=== PATIENT | male | born 1990 | race Caucasian/White ===

== ENCOUNTER 2018-05-04 07:35 | Emergency (ER) | payer OTHER ==
[2018-05-04 07:38] VITALS: BP 151/90; PULSE 77; RESP 18; TEMP 98.2
--- NOTE | 2018-05-04 07:49 | ED ---
General Adult HPI - General Chief complaint: Shortness of Breath Stated complaint: SOB Time Seen by Provider: 05/04/18 07:39 Source: patient, RN notes reviewed Mode of arrival: ambulatory Limitations: no limitations - History of Present Illness Initial comments: Patient is a pleasant 28-year-old male presenting to the emergency Department with complaints of shortness of breath. Patient has had a mild cough for the past couple of days. Patient felt somewhat short of breath this morning. The most part this last around 45 minutes. Symptoms are near resolved at this point however remain a small amount. Onset was around 5 AM when he woke. No pain. No palpitations. No fevers. No leg pain or leg swelling. No history of similar symptoms previously. Patient denies having sore throat or sinus congestion. - Related Data Previous Rx's Medication Instructions Recorded Ciprofloxacin HCl [Cipro] 500 mg PO Q12HR #20 tablet 01/07/16 Diphenox-Atrop 2.5-0.025 mg 1 tab PO QID PRN #12 tablet 01/07/16 [Lomotil] Allergies Allergy/AdvReac Type Severity Reaction Status Date / Time codeine Allergy Vomiting Verified 05/04/18 07:38 loracarbef [From Lorabid] Allergy Unknown Verified 05/04/18 07:38 Penicillins Allergy Unknown Verified 05/04/18 07:38 Review of Systems ROS Statement: Those systems with pertinent positive or pertinent negative responses have been documented in the HPI. ROS Other: All systems not noted in ROS Statement are negative. Constitutional: Denies: fever Eyes: Denies: eye pain ENT: Denies: ear pain Respiratory: Reports: cough, dyspnea Cardiovascular: Denies: chest pain Endocrine: Denies: fatigue Gastrointestinal: Denies: abdominal pain Genitourinary: Denies: dysuria Musculoskeletal: Denies: back pain Skin: Denies: rash Neurological: Denies: weakness Past Medical History Past Medical History: No Reported History History of Any Multi-Drug Resistant Organisms: None Reported Past Surgical History: No Surgical Hx Reported Past Psychological History: No Psychological Hx Reported Smoking Status: Current some day smoker Past Alcohol Use History: Occasional Past Drug Use History: Marijuana General Exam Limitations: no limitations General appearance: alert, in no apparent distress Head exam: Present: atraumatic Eye exam: Present: normal appearance ENT exam: Present: normal oropharynx Neck exam: Present: normal inspection. Absent: tenderness Respiratory exam: Present: normal lung sounds bilaterally. Absent: respiratory distress, wheezes, rales, rhonchi, stridor, accessory muscle use, decreased juan r th sounds, prolonged expiratory Cardiovascular Exam: Present: regular rate, normal rhythm GI/Abdominal exam: Present: soft. Absent: tenderness Extremities exam: Present: normal inspection. Absent: pedal edema, calf tenderness Neurological exam: Present: alert Psychiatric exam: Present: normal affect, normal mood Skin exam: Present: normal color Course Vital Signs 05/04/18 07:36 Temperature 98.2 F Pulse Rate 77 Respiratory 18 Rate Blood Pressure 151/90 O2 Sat by Pulse 100 Oximetry EKG Findings - EKG Comments: EKG Findings:: EKG shows sinus bradycardia 53. MA 144. QRS 96. QT 398. QTc 373. Right axis. Normal QRS. Nonspecific ST-T. Medical Decision Making - Medical Decision Making Patient reevaluated and resting comfortably in bed. Patient updated on results and need for follow-up. Patient does request no work today. - Lab Data Lab Results 05/04/18 Range/Units 07:55 D-Dimer <0.17 (<0.60) mg/L FEU - Radiology Data Radiology results: image reviewed (Chest x-ray shows no acute process) Disposition Clinical Impression: Cough Disposition: HOME SELF-CARE Condition: Stable Instructions (If sedation given, give patient instructions): Acute Bronchitis (ED), Dyspnea (ED) Additional Instructions: Please follow-up with your primary care physician in the next day or 2 for recheck. Return for difficulty breathing, fevers, pain, worsening or change in symptoms or other concerns. Is patient prescribed a controlled substance at d/c from ED?: No Referrals: Angelito Becerril DO [Primary Care Provider] - 1-2 days Time of Disposition: 08:53
--- NOTE | 2018-05-04 08:38 | XR ---
EXAMINATION TYPE: XR chest 2V DATE OF EXAM: 05/04/2018 COMPARISON: 02/24/2012 HISTORY: Shortness of breath TECHNIQUE: Frontal and lateral views of the chest are obtained. FINDINGS: There is no focal air space opacity, pleural effusion, or pneumothorax seen. The cardiac silhouette size is within normal limits. The osseous structures are intact. IMPRESSION: No acute cardiopulmonary process.
== END 2018-05-04 09:40 | disposition home or self-care (01) ==
LOC: EC 07:35
DX: R05 Cough (principal); R06.02 Shortness of breath; F17.200 Nicotine dependence, unspecified, uncomplicated; Z88.0 Allergy status to penicillin; Z88.5 Allergy status to narcotic agent; Z88.1 Allergy status to other antibiotic agents
CPT/HCPCS: 36415; 71046; 85379; 93005; 99285

== ENCOUNTER 2020-03-31 05:53 | Emergency (ER) | payer BC, OTHER ==
[2020-03-31 06:02] VITALS: RESP 15; TEMP 98.4
--- NOTE | 2020-03-31 06:17 | ED ---
Headache HPI - General Chief Complaint: Headache Stated Complaint: Head injury Time Seen by Provider: 03/31/20 06:11 Mode of arrival: ambulatory Limitations: no limitations - History of Present Illness Initial Comments: 30-year-old male presenting today for chief complaint evaluation of head injury. Patient states he was struck by a metal box fan that was quite heavy that fell from 3 feet onto the top of his head he states the proximal happened 12 days ago. Patient states he has had dizziness and headache since. He states he did not have these symptoms prior to the injury. He stated they began a few hours after. He denies any ear fullness hearing loss or ringing in the ears. He denies any upper respiratory symptoms. He denies feeling off balance he denies sensation deficits weakness vision changes or loss speech changes he denies any nausea or vomiting. Patient was unsure if he had a concussion. He denies any lacerations or abrasions. He denies a bruising beneath the eyes or behind the ears. He denies any significant neck pain. Patient denies any other areas of injury. Patient appears nontoxic on arrival in no distress. - Related Data Home Medications Medication Instructions Recorded Confirmed No Known Home Medications 05/04/18 05/04/18 Allergies Allergy/AdvReac Type Severity Reaction Status Date / Time codeine Allergy Vomiting Verified 03/31/20 05:57 loracarbef [From Lorabid] Allergy Unknown Verified 03/31/20 05:57 Penicillins Allergy Unknown Verified 03/31/20 05:57 Review of Systems ROS Statement: Those systems with pertinent positive or pertinent negative responses have been documented in the HPI. ROS Other: All systems not noted in ROS Statement are negative. Past Medical History Past Medical History: No Reported History History of Any Multi-Drug Resistant Organisms: None Reported Past Surgical History: Orthopedic Surgery Additional Past Surgical History / Comment(s): foot Past Psychological History: No Psychological Hx Reported Smoking Status: Never smoker Past Alcohol Use History: Occasional Past Drug Use History: Marijuana General Exam - General Exam Comments Initial Comments: General: The patient is awake and alert, in no distress Eye: +3 mm pupils are equal, round and reactive to light, extra-ocular movements are intact. No nystagmus. There is normal conjunctiva bilaterally. No signs of icterus. Ears, nose, mouth and throat: There are moist mucous membranes and no oral lesions. Neck: The neck is supple, there is no tenderness or JVD. Cardiovascular: There is a regular rate and rhythm. No murmur, rub or gallop is appreciated. Respiratory: Lungs are clear to auscultation, respirations are non-labored, breath sounds are equal. No wheezes, stridor, rales, or rhonchi. Gastrointestinal: Soft, non-distended, non-tender abdomen without masses or organomegaly noted. There is no rebound or guarding present. Musculoskeletal: Normal ROM, no tenderness. Strength 5/5. Sensation intact. Pulses equal bilaterally 2+. Neurological: A&O x 3. CN II-XII intact, memory intact to immediately, intermediate and middle school technology teacher recall. Able to follow simple verbal. Able to name a common object (pen). High quality, labial (pa) and lingual (la) speech. Low quality posterior pharynx/larynx (ga) voice sounds. Able to express general knowledge (days in a week). No hemineglect or inattention noted. Finger agnosia (-) and spatially oriented (identified L index finger touched R shoulder with L index finger). Cranial Nerves- Light touch sensation present over the face, chest, abdomen, back, UE bilaterally, and LE bilaterally. Able to localize point during point localization b/l and extinction. No visible bulk atrophy, hypertrophy, fasciculations, or myoclonus of the UE or LE b/l. Full PROM in UE and LE b/l. Bilateral muscle strength 5/5 for the following muscles: deltoid, biceps, triceps, brachioradialis, wrist extensors/flexor, hip flexor, hip abductors/adductors, hamstrings, quadriceps, feet dorsiflexors/plantar flexors. Finger to nose, finger to the examiners finger, and heel to crandall coordinated and accurate b/l. Coordinated and even demonstration of hand flip, finger to thumb, and toe tap b/l. Gait is coordinated and even in stride. (-) Romberg. (-) pronator drift. No nuchal rigidity. (-) Brudzinskis and Kernig signs. Skin: Skin is warm and dry and no rashes or lesions are noted. Psychiatric: Cooperative, appropriate mood & affect, normal judgment. Limitations: no limitations Course Vital Signs 03/31/20 03/31/20 05:58 07:41 Temperature 98.4 F 98.4 F Pulse Rate 71 55 L Respiratory 15 15 Rate Blood Pressure 128/78 129/85 O2 Sat by Pulse 97 98 Oximetry Medical Decision Making - Medical Decision Making No focal deficits. No scalp findings. no raccoon or dumont sign. no nystagmus, no ataxia. patient CT (-). patient at this time I feel has a concussion, i discussed concussion safety/protocols and recommend pcp f/u. patient case discussed with Dr. Burroughs who is agreeable to care. Disposition Clinical Impression: Head injury, Headache, Dizziness Disposition: HOME SELF-CARE Condition: Good Instructions (If sedation given, give patient instructions): Concussion (ED) Additional Instructions: Please use medication as discussed. Please follow-up with family doctor in the next 2 days. I do not recommend sports/activities with increased risk of head injury until symptoms free/cleared by PCP . Please return to emergency room if the symptoms increase or worsen or for any other concerns. Is patient prescribed a controlled substance at d/c from ED?: No Referrals: Angelito Becerril DO [Primary Care Provider] - 1-2 days Time of Disposition: 06:59
--- NOTE | 2020-03-31 07:24 | CT ---
EXAM: CT Head Without Intravenous Contrast CLINICAL HISTORY: ITS.REASON CT Reason: head injury TECHNIQUE: Axial computed tomography images of the head/brain without intravenous contrast. CTDI is 49.27 mGy and DLP is 1011.40 mGy-cm. This CT exam was performed using one or more of the following dose reduction techniques: automated exposure control, adjustment of the mA and/or kV according to patient size, and/or use of iterative reconstruction technique. COMPARISON: CT 06/28/13. FINDINGS: Brain: No hemorrhage. No acute cortical infarct. No midline shift. Ventricles: Stable. Bones/joints: No acute fracture. Soft tissues: Unremarkable. Sinuses: Unremarkable as visualized. Mastoid air cells: Unremarkable as visualized. IMPRESSION: No intracranial hemorrhage or skull fracture.
[2020-03-31 07:42] VITALS: BP 129/85; PULSE 55
== END 2020-03-31 07:42 | disposition home or self-care (01) ==
LOC: EC 05:53
DX: S09.90XA Unspecified injury of head, initial encounter (principal); R42 Dizziness and giddiness; Z88.5 Allergy status to narcotic agent; Z88.0 Allergy status to penicillin; Z88.1 Allergy status to other antibiotic agents; W20.8XXA Other cause of strike by thrown, projected or falling object, initial encounter
CPT/HCPCS: 70450; 99283

== ENCOUNTER 2023-07-21 11:23 | Emergency (ER) | payer BC ==
--- NOTE | 2023-07-21 11:44 | ED ---
Chest Pain HPI - General Chief Complaint: Chest Pain Stated Complaint: Chest pains Time Seen by Provider: 07/21/23 11:41 Source: patient, RN notes reviewed Mode of arrival: ambulatory Limitations: no limitations - History of Present Illness Initial Comments: 33-year-old male presented to the ER with a chief complaint of chest pain. Patient states he woke up around 2 AM and was experiencing a stretching/pulling chest discomfort. He reports this was intermittent until approximately 6 AM. He denies any current chest pain. He does state he was having mild shortness of breath during this episode. He states he was sipping water while experiencing this. He denies any nausea, vomiting or diaphoresis. He denies any known cardiac history, history of blood clots, hypertension or diabetes. He denies any recent increase in physical activity or pain with movement of upper extremities. - Related Data Home Medications Medication Instructions Recorded Confirmed No Known Home Medications 05/04/18 07/21/23 Allergies Allergy/AdvReac Type Severity Reaction Status Date / Time codeine Allergy Vomiting Verified 07/21/23 12:35 loracarbef [From Lorabid] Allergy Unknown Verified 07/21/23 12:35 Penicillins Allergy Rash/Hives Verified 07/21/23 12:35 Review of Systems ROS Statement: Those systems with pertinent positive or pertinent negative responses have been documented in the HPI. ROS Other: All systems not noted in ROS Statement are negative. EKG Findings - EKG Comments: EKG Findings:: EKG taken at 11: 37 showing sinus bradycardia with no acute ST segment or T wave abnormalities. Ventricular rate 55, MT interval 156, QRS duration 94, QT/QTc 371/360. Past Medical History Past Medical History: No Reported History History of Any Multi-Drug Resistant Organisms: None Reported Past Surgical History: Orthopedic Surgery Additional Past Surgical History / Comment(s): foot Past Psychological History: No Psychological Hx Reported Smoking Status: Never smoker Past Alcohol Use History: Occasional Past Drug Use History: Marijuana General Exam Limitations: no limitations General appearance: alert, in no apparent distress Respiratory exam: Present: normal lung sounds bilaterally. Absent: respiratory distress, wheezes, rales, rhonchi, stridor Cardiovascular Exam: Present: normal rhythm, bradycardia, normal heart sounds. Absent: systolic murmur, diastolic murmur, rubs, gallop, clicks Extremities exam: Present: normal inspection, full ROM, normal capillary refill. Absent: tenderness, pedal edema, joint swelling, calf tenderness Neurological exam: Present: alert, oriented X3, CN II-XII intact Skin exam: Present: warm, dry, intact, normal color. Absent: rash Course Vital Signs 07/21/23 07/21/23 07/21/23 11:24 13:06 14:13 Temperature 98.4 F Pulse Rate 55 L 80 Respiratory 18 16 Rate Blood Pressure 168/101 136/98 130/91 O2 Sat by Pulse 97 98 Oximetry Chest Pain MDM - MDM Was pt. sent in by a medical professional or institution (, PA, PRODUCT TECHNICIAN, urgent care, hospital, or senior living...) When possible be specific @ -No Did you speak to anyone other than the patient for history (EMS, parent, family, police, friend...)? What history was obtained from this source @ -No Did you review nursing and triage notes (agree or disagree)? Why? @ -I reviewed and agree with nursing and triage notes Were old charts reviewed (outside hosp., previous admission, EMS record, old EKG, old radiological studies, urgent care reports/EKG's, senior living records)? Report findings @ -No old charts were reviewed Differential Diagnosis (chest pain, altered mental status, abdominal pain women, abdominal pain men, vaginal bleeding, weakness, fever, dyspnea, syncope, headache, dizziness, GI bleed, back pain, seizure, CVA, palpatations, mental health, musculoskeletal)? @ -Differential Chest Pain: Stable Angina, Unstable Angina, STEMI, NSTEMI Aortic Dissection, Pneumothorax, Musculoskeletal, Esophageal Spasm GERD, Cholecystitis, Pancreatitis, Zoster, this is not meant to be an all-inclusive list. EKG interpreted by me (3pts min.). @ -Chest x-ray interpreted by me negative for acute cardiopulmonary process. X-rays interpreted by me (1pt min.). @ -None done CT interpreted by me (1pt min.). @ -None done U/S interpreted by me (1pt. min.). @ -None done What testing was considered but not performed or refused? (CT, X-rays, U/S, labs)? Why? @ -None What meds were considered but not given or refused? Why? @ -None Did you discuss the management of the patient with other professionals (professionals i.e. , PA, PRODUCT TECHNICIAN, lab, RT, psych nurse, social work assistant, merchandise carrier, teacher, sewage reticulation drafting officer, case assistant)? Give summary @ -No Was smoking cessation discussed for >3mins.? @ -No Was critical care preformed (if so, how long)? @ -No Were there social determinants of health that impacted care today? How? (Homelessness, low income, unemployed, alcoholism, drug addiction, transportation, low edu. Level, literacy, decrease access to med. care, [facility], rehab)? @ -No Was there de-escalation of care discussed even if they declined (Discuss DNR or withdrawal of care, Hospice)? DNR status @ -No What co-morbidities impacted this encounter? (DM, HTN, Smoking, COPD, CAD, Cancer, CVA, ARF, Chemo, Hep., AIDS, mental health diagnosis, sleep apnea, morbid obesity)? @ -None Was patient admitted / discharged? Hospital course, mention meds given and route, prescriptions, significant lab abnormalities, going to OR and other pertinent info. @ -Discharge. 33-year-old male presented to the ER with a chief complaint of chest pain. History and physical exam completed. Vitals stable. Patient no signs of acute distress and nontoxic-appearing. Exam significant for normal heart sounds with lung sounds clear to auscultation bilaterally. Patient in no signs of acute distress. Laboratory studies obtained unremarkable. D-dimer less than 0.17, troponin less than 0.012 x 2. EKG showing sinus bradycardia with a sinus arrhythmia. No acute ST segment or T wave abnormalities. Chest x- ray interpreted by me negative for acute cardiopulmonary process. Patient received 1 L IV fluids in the ER. Upon reevaluation, patient resting comfortably in exam room using cell phone. Results discussed with patient, all questions answered. HEART score 0. Given patient's negative cardiac history, negative troponins x 2 and HEART score 0, patient is stable for discharge at this time. Strict return parameters discussed. Patient discharged in stable condition with follow-up to PCP. Patient verbally expressed understanding and agreement with care plan. Case discussed with ED attending, Dr. Burciaga. Undiagnosed new problem with uncertain prognosis? @ -No Drug Therapy requiring intensive monitoring for toxicity (Heparin, Nitro, Insulin, Cardizem)? @ -No Were any procedures done? @ -No Diagnosis/symptom? @ -Atypical chest pain Acute, or Chronic, or Acute on Chronic? @ -Acute Uncomplicated (without systemic symptoms) or Complicated (systemic symptoms)? @ -Uncomplicated Side effects of treatment? @ -No Exacerbation, Progression, or Severe Exacerbation? @ -No Poses a threat to life or bodily function? How? (Chest pain, [place], [place], pneumonia, PE, COPD, DKA, ARF, appy, cholecystitis, CVA, Diverticulitis, Homicidal, Suicidal, threat to staff... and all critical care pts) @ -No Disposition Clinical Impression: Atypical chest pain Disposition: HOME SELF-CARE Condition: Stable Instructions (If sedation given, give patient instructions): Chest Pain (ED) Additional Instructions: Please follow-up with primary care physician within the next week. Return to the ER for any new or worsening concerns. Is patient prescribed a controlled substance at d/c from ED?: No Referrals: Angelito Becerril DO [Primary Care Provider] - 1-2 days Time of Disposition: 15:16
--- NOTE | 2023-07-21 12:04 | XR ---
EXAMINATION TYPE: XR chest 2V DATE OF EXAM: 07/21/2023 COMPARISON: 05/04/2018 HISTORY: Chest pain TECHNIQUE: Frontal and lateral views of the chest are obtained. FINDINGS: There is no focal air space opacity. No evidence for pneumothorax. No pleural effusion. The cardiac silhouette size is within normal limits. The osseous structures are grossly intact. IMPRESSION: 1. No acute cardiopulmonary process.
[2023-07-21] MEDS: SODIUM CHLORIDE 0.9% 1,000 ML IV STA (12:08)
[2023-07-21 12:27] LABS: ALT 22 U/L (4-49); AST 22 U/L (17-59); African American GFR (CKD) >90 (>60 ml/min/1.73 sqM); Albumin 4.6 g/dL (3.5-5.0); Alkaline Phosphatase 67 U/L (38-126); Anion Gap 6 mmol/L; Blood Urea Nitrogen 13 mg/dL (9-20); Calcium 9.4 mg/dL (8.4-10.2); Carbon Dioxide 26 mmol/L (22-30); Chloride 107 mmol/L (98-107); Glucose 92 mg/dL (74-99); Magnesium 1.8 mg/dL (1.6-2.3); Non-African American GFR(CKD) >90 (>60 ml/min/1.73 sqM); Potassium 3.8 mmol/L (3.5-5.1); Sodium 139 mmol/L (137-145); Total Bilirubin 0.6 mg/dL (0.2-1.3); Total Protein 6.8 g/dL (6.3-8.2)
[2023-07-21 12:30] LABS: Partial Thromboplastin Time 24.6 sec (22.0-30.0); Prothrombin Time 10.6 sec (10.0-12.5)
[2023-07-21 12:40] LABS: Basophils # (A) 0.1 k/uL (0-0.2); Basophils % (A) 1 %; Eosinophils # (A) 0.4 k/uL (0-0.7); Eosinophils % (A) 6 %; HCT 46.4 % (39.0-53.0); HGB 16.1 gm/dL (13.0-17.5); Lymphocytes # (A) 2.3 k/uL (1.0-4.8); Lymphocytes % (A) 34 %; MCH 30.2 pg (25.0-35.0); MCHC 34.7 g/dL (31.0-37.0); MCV 87.1 fL (80.0-100.0); Mean Platelet Volume 7.4; Monocytes # (A) 0.4 k/uL (0-1.0); Monocytes % (A) 6 %; Neutrophils # (A) 3.5 k/uL (1.3-7.7); Neutrophils % (A) 53 %; Platelet Count 148 k/uL (150-450); RBC 5.33 m/uL (4.30-5.90); RDW 12.1 % (11.5-15.5); WBC 6.7 k/uL (3.8-10.6)
[2023-07-21 14:13] VITALS: RESP 16
[2023-07-21 15:51] VITALS: BP 135/95; PULSE 57; TEMP 98.9
== END 2023-07-21 15:58 | disposition home or self-care (01) ==
LOC: EC 11:23
DX: R07.89 Other chest pain (principal); R00.1 Bradycardia, unspecified; F12.90 Cannabis use, unspecified, uncomplicated; Z88.5 Allergy status to narcotic agent; Z88.0 Allergy status to penicillin; Z88.1 Allergy status to other antibiotic agents
CPT/HCPCS: 36415; 71046; 80053; 83735; 84484; 85025; 85379; 85610; 85730; 93005; 96360; 99285

== ENCOUNTER 2023-11-17 07:49 | Emergency (ER) | payer BC ==
--- NOTE | 2023-11-17 08:21 | ED ---
URI HPI - General Chief Complaint: Upper Respiratory Infection Stated Complaint: Congestion,Diarrhea,URI Time Seen by Provider: 11/17/23 07:56 Source: patient, RN notes reviewed Mode of arrival: ambulatory Limitations: no limitations - History of Present Illness Initial Comments: This is a 33-year-old male who presents to the emergency department for cou ghing, congestion, and cold sweats. States that symptoms started about 9 days ago. On 11/10 they tested him for COVID and strep, which were negative and sent in a prescription for steroids, which he has since finished. States that he feels like he still has a cough and congestion. He has intermittent nausea and diarrhea. Does not currently feel nauseous. Has occasional bouts of shortness of breath, but states that that is not currently present. He does have a history of asthma, but states that it rarely flares up on him and he is not currently on any medication for it. MD Complaint: cough, nasal congestion - Related Data Previous Rx's Medication Instructions Recorded Benzonatate [Tessalon Perle] 200 mg PO TID PRN #30 capsule 11/17/23 Ondansetron Odt [Zofran Odt] 4 mg PO Q8HR PRN #15 tab 11/17/23 Allergies Allergy/AdvReac Type Severity Reaction Status Date / Time codeine Allergy Vomiting Verified 11/17/23 07:55 loracarbef [From Lorabid] Allergy Unknown Verified 11/17/23 07:55 Penicillins Allergy Rash/Hives Verified 11/17/23 07:55 Review of Systems ROS Statement: Those systems with pertinent positive or pertinent negative responses have been documented in the HPI. ROS Other: All systems not noted in ROS Statement are negative. Past Medical History Past Medical History: Asthma History of Any Multi-Drug Resistant Organisms: None Reported Past Surgical History: Orthopedic Surgery Additional Past Surgical History / Comment(s): foot Past Psychological History: No Psychological Hx Reported Smoking Status: Never smoker Past Alcohol Use History: Occasional Past Drug Use History: Marijuana General Exam Limitations: no limitations General appearance: alert, in no apparent distress Head exam: Present: atraumatic, normocephalic, normal inspection Respiratory exam: Present: normal lung sounds bilaterally. Absent: respiratory distress, wheezes, rales, rhonchi, stridor Cardiovascular Exam: Present: regular rate, normal rhythm, normal heart sounds. Absent: systolic murmur, diastolic murmur, rubs, gallop, clicks Neurological exam: Present: alert, oriented X3, CN II-XII intact Psychiatric exam: Present: normal affect, normal mood Skin exam: Present: warm, dry, intact, normal color. Absent: rash Course Vital Signs 11/17/23 11/17/23 07:53 09:13 Temperature 98.1 F 98.0 F Pulse Rate 108 H 86 Respiratory 20 18 Rate Blood Pressure 156/84 149/80 O2 Sat by Pulse 97 97 Oximetry Medical Decision Making - Medical Decision Making This is a 33 year old male who presents to the emergency department for coughing and congestion. Was pt. sent in by a medical professional or institution? @ -No Did you speak to anyone other than the patient for history? @ -No Did you review nursing and triage notes? @ -Yes, and I agree, it is accurate with regards to the patient's symptoms. Were old charts reviewed? @ -No Differential Diagnosis? @ -Differential Cough: Influenza, Covid, RSV, croup, allergic rhinitis, GERD, pneumonia, bronchitis, COPD, viral pharyngitis, streptococcal pharyngitis, this is not meant to be an all-inclusive list. EKG interpreted by me (3pts min.)? @ -Not obtained X-rays interpreted by me (1pt min.)? @ -Chest x-ray obtained, my interpretation identifies no localized consolidations or infiltrates. CT interpreted by me (1pt min.)? @ -Not obtained U/S interpreted by me (1pt. min.)? @ -Not obtained What testing was considered but not performed? (CT, X-rays, U/S, labs)? Why? @ -Given the duration of his symptoms, I did offer further workup with blood work, including a CBC, CMP, D-dimer, and troponin. However, patient declined. What meds were considered but not given? Why? @ -None Did you discuss the management of the patient with other professionals? @ -No Did you reconcile home meds? @ -No Was smoking cessation discussed for >3mins.? @ -I discussed smoking cessation for greater than 3 minutes. The risk of smoking were discussed with the patient including but not limited to risks of cancer, stroke, coronary artery disease and COPD. Also discussed with patient were multiple methods of quitting smoking. Lastly we discussed the financial cost of smoking. Was critical care preformed (if so, how long)? @ -No Were there social determinants of health that impacted care today? How? (Homelessness, low income, unemployed, alcoholism, drug addiction, transportation, low edu. Level, literacy, decrease access to med. care, custodial, rehab)? @ -No Was there de-escalation of care discussed even if they declined? (Discuss DNR or withdrawal of care, Hospice)? @ -No What co-morbidities impacted this encounter? (DM, HTN, Smoking, COPD, CAD, Cancer, CVA, Hep., AIDS, mental health diagnosis, sleep apnea, morbid obesity)? @ -Asthma, smoking Was patient admitted / discharged? @ -Discharged. COVID, influenza, and RSV testing negative. Chest x-ray reveals no acute process. Given the duration of his symptoms being 9 days, I did offer further workup with lab work. However, patient declined. States that he will see how he does over the next several days and return if symptoms worsen. Prescription for Tessalon Perles and Zofran provided to help with symptomatic management. Advised close follow-up with his PCP. Patient discharged home in stable condition. Case discussed with ED attending Dr. Rodríguez. Return precautions reviewed in depth, the patient is instructed to return to the emergency department with any new, worsening, or concerning symptoms. Patient verbalized understanding. Undiagnosed new problem with uncertain prognosis? @ -None Drug Therapy requiring intensive monitoring for toxicity (Heparin, Nitro, Insulin, Cardizem)? @ -None Were any procedures done? @ -None Diagnosis/symptom? @ -URI, nausea Acute, or Chronic, or Acute on Chronic? @ -Acute Uncomplicated (without systemic symptoms) or Complicated (systemic symptoms)? @ -Uncomplicated Side effects of treatment? @ -None Exacerbation, Progression, or Severe Exacerbation] @ -Not applicable Poses a threat to life or bodily function? @ -No - Lab Data Lab Results 11/17/23 Range/Units 08:06 Influenza Type A (PCR) Not Detected (Not Detectd) Influenza Type B (PCR) Not Detected (Not Detectd) RSV (PCR) Not Detected (Not Detectd) SARS-CoV-2 (PCR) Not Detected (Not Detectd) - Radiology Data Radiology results: report reviewed, image reviewed Disposition Clinical Impression: Upper respiratory tract infection, Nicotine dependence Disposition: HOME SELF-CARE Instructions (If sedation given, give patient instructions): Upper Respiratory Infection (ED) Additional Instructions: Return to the emergency department with any new, worsening, or concerning symptoms. Take the Tessalon Perles up to every 8 hours as needed for coughing. Take the Zofran up to every 8 hours as needed for nausea and vomiting. Follow up with your primary care provider in 1-2 days. Prescriptions: Benzonatate [Tessalon Perle] 200 mg PO TID PRN #30 capsule PRN Reason: Cough Ondansetron Odt [Zofran Odt] 4 mg PO Q8HR PRN #15 tab PRN Reason: Nausea And Vomiting Is patient prescribed a controlled substance at d/c from ED?: No Referrals: Angelito Becerril DO [Primary Care Provider] - 1-2 days Time of Disposition: 09:07
--- NOTE | 2023-11-17 08:25 | XR ---
EXAMINATION TYPE: XR chest 2V DATE OF EXAM: 11/17/2023 COMPARISON: 07/21/2023 HISTORY: Chest pain TECHNIQUE: Frontal and lateral views of the chest are obtained. FINDINGS: There is no focal air space opacity. No evidence for pneumothorax. No pleural effusion. The cardiac silhouette size is within normal limits. The osseous structures are grossly intact. IMPRESSION: 1. No acute cardiopulmonary process. [facility], , 11/17/2023 8:23 AM
[2023-11-17 09:15] VITALS: BP 149/80; PULSE 86; RESP 18; TEMP 98
== END 2023-11-17 09:17 | disposition home or self-care (01) ==
LOC: EC 07:49
CPT/HCPCS: 71046; 87636; 99283